=== PATIENT | male | born 1990 | race Two or more races ===

== ENCOUNTER 2018-02-07 16:22 | Emergency (ER) | payer SELFPAY ==
[~2018-02-07] VITALS: Ht 180.3 cm; Wt 107.5 kg
[2018-02-07] MEDS ORDERED: ALBU18HF2 IH (16:33)
[2018-02-07] MEDS ORDERED: IBUPROFEN 600MG TABLET PO ONE (18:00)
[2018-02-07 18:18] VITALS: BP 146/84
== END 2018-02-07 18:23 | disposition home or self-care (01) ==
LOC: ER 18:06
DX: S39.012A Strain of muscle, fascia and tendon of lower back, initial encounter (principal); J45.909 Unspecified asthma, uncomplicated; V89.2XXA Person injured in unspecified motor-vehicle accident, traffic, initial encounter; Y93.89 Activity, other specified; Y92.89 Other specified places as the place of occurrence of the external cause; Y99.8 Other external cause status
CPT/HCPCS: 72100; 73030; 99284

== ENCOUNTER 2018-04-03 07:58 | Emergency (ER) | payer MEDICAID ==
[~2018-04-03] VITALS: Ht 180.3 cm; Wt 108.0 kg
[~2018-04-03 07:58] MED LIST: ALBU18HF2 IH
[2018-04-03] MEDS ORDERED: IPRATROPIUM BROMIDE (0.02%) 0.5MG/2.5ML NEB HHN STA (08:54)
[2018-04-03] MEDS ORDERED: ALBUTEROL (0.083%) 2.5MG/3ML NEB HHN STA (08:54)
[2018-04-03] MEDS ORDERED: MAGNESIUM 2 G PREMIX 50 ML IV STA (08:54)
[2018-04-03] MEDS ORDERED: METHYLPREDNISOLONE SOD SUCC 125 MG/2 ML VIAL IV STA (08:54)
[2018-04-03 11:41] VITALS: BP 140/80
== END 2018-04-03 11:42 | disposition home or self-care (01) ==
LOC: ER 08:32
DX: J45.901 Unspecified asthma with (acute) exacerbation (principal)
CPT/HCPCS: 71045; 94644; 96365; 96375; 99285; J2930; J3475; J7611